=== PATIENT | female | born 1985 | race Caucasian/White ===

== ENCOUNTER 2019-05-24 12:38 | Emergency (ER) | payer SELFPAY ==
[~2019-05-24] VITALS: Ht 157.5 cm; Wt 85.7 kg
[2019-05-24 13:21] VITALS: Ht 157.5 cm; Wt 85.7 kg
[2019-05-24 17:11] VITALS: BP 123/82
== END 2019-05-24 17:11 | disposition home or self-care (01) ==
LOC: ED 12:38
DX: J20.9 Acute bronchitis, unspecified (principal)